=== PATIENT | male | born 1995 | race Caucasian/White ===

== ENCOUNTER 2020-06-09 16:26 | Emergency (ER) | payer BC ==
[~2020-06-09] VITALS: Ht 185.4 cm; Wt 127.3 kg
[~2020-06-09 16:26] MED LIST: NO HOME MEDICATONS
[2020-06-09 16:41] VITALS: TEMP 98.4
[2020-06-09 17:29] VITALS: BP 111/75; PULSE 77
== END 2020-06-09 17:29 | disposition home or self-care (01) ==
LOC: COL.ER 16:26
DX: T15.02XA Foreign body in cornea, left eye, initial encounter (principal); F17.290 Nicotine dependence, other tobacco product, uncomplicated; W45.8XXA Other foreign body or object entering through skin, initial encounter